=== PATIENT | male | born 1975 | race Caucasian/White ===

== ENCOUNTER 2017-04-01 16:15 | Emergency (ER) | payer OTHER ==
[~2017-04-01] VITALS: Ht 170.2 cm; Wt 83.9 kg
[2017-04-01 16:19] VITALS: BP 138/70
[2017-04-01] MEDS ORDERED: AUGMENTIN 875-1 EACH PO (16:55)
--- NOTE | 2017-04-01 16:55 | ED ANIMAL BITE/WOUND CHECK ---
History of Present Illness General Chief Complaint: Animal/Insect Bite Stated Complaint: DOG BITE Source: patient, old records, police Exam Limitations: intoxication Vital Signs & Intake/Output Vital Signs & Intake/Output Vital Signs Date Time Temp Pulse Resp B/P B/P Pulse O2 O2 Flow FiO2 Mean Ox Delivery Rate 04/01 1619 97.0 124 26 138/70 96 Room Air Allergies Coded Allergies: No Known Allergies (04/01/17) Reconcile Medications Amoxicillin/Potassium Clav (Augmentin 875-125 Tablet) 875 MG-125 MG TABLET 1 TAB PO BID DOG BITE Triage Note: TRIAGE: PT TO ER C/C DOG BITE AND ? STAB WOUNDS TO RLE AND RUE. DOG IS UNKNOWN TO PATIENT. UNSURE OF LAST TETANUS, THINKS HAD IT DONE HERE LAST. PT TRIAGED IN ROOM, DIRECT FROM [facility] DESK. DARIEL WILKES INTO EVALUATE. Triage Nurses Notes Reviewed? yes Onset: Abrupt Duration: hour(s): (1), constant Timing: single episode today Injury Environment: neighbor's Is Injury an Animal Bite? Yes Animal Type: dog Context of Animal Attack: provoked attack Animal Immunization Status: unknown Observation/Capture: animal known/obs x10 days Severity of Attack: bitten Severity: moderate Severity Numbers: 5 No Modifying Factors: none Associated Symptoms: DENIES HPI: 42-year-old male presents to ER for evaluation status post sustaining a dog bite to his right leg and right arm. The patient states to me that he was walking down the street unprovoked when a dog approached him and attacked him. Patient' s last tetanus is unknown he is complaining of [id number] aching pain 5 out of 10 here reports to having a few beers today. The police are at bedside to question the patient. There is no other injury no modifying factors or associated symptoms. (PRISCA LUNA) Past History Travel History Traveled to [place] past 21 day No Medical History Any Pertinent Medical History? none Neurological: NONE EENT: NONE Cardiovascular: NONE Respiratory: NONE Gastrointestinal: NONE Hepatic: NONE Renal: NONE Musculoskeletal: NONE Psychiatric: NONE Endocrine: NONE Blood Disorders: NONE Cancer(s): NONE REGULATORY AND COMPLIANCE TECHNICIAN/Reproductive: NONE Surgical History Surgical History: none Psychosocial History What is your primary language Japanese Tobacco Use: Never used ETOH Use: occasional use Family History Hx Contributory? No (PRISCA LUNA) Review of Systems Review of Systems Constitutional: Reports: see HPI. All Other Systems: Reviewed and Negative Comments Review of systems: See HPI, All other systems negative. Constitutional, no chills no fever, no malaise HEENT: No visual changes no sore throat no congestion Cardiovascular: No chest pain , no palpitation Skin: no rashes, no change in skin Respiratory: No dyspnea no cough no sputum GI: No nausea no vomiting, no diarrhea Muscle skeletal: No joint pain, no back pain, no neck pain, Neurologic: No numbness no headache Psych: No stress Heme/endocrine: No bruising Immunology: No lymphadenopathy (PRISCA LUNA) Physical Exam Physical Exam General Appearance: well developed/nourished, no apparent distress, alert, awake Comments: Well-developed well-nourished patient in no apparent distress. HEENT: Atraumatic, extraocular motion intact Neck: Supple, FROM Back: FROM Cardiovascular: Regular rate and rhythms no murmurs rubs Respiratory: No respiratory distress. Patient speaking in full complete sentences. Breath sounds clear to auscultation bilaterally: NO W/R/R Extremities: There are 2 superficial puncture hill noted to the right dorsal proximal arm as well as a 5 cm laceration superficial linear to the right medial inner thigh and a 2 cm laceration to the anterior right lower card full range of motion Neuro: awake, alert, and oriented to person, place and time. There were no obvious focal neurologic abnormalities. Skin: Warm & dry;No appreciable rash on exposed skin Psych: Mood affect normal, normal memory normal judgment. (PRISCA LUNA) Progress Differential Diagnosis: cellulitis, tenosysnovitis, RABIES LACERATION Plan of Care: Current Medications Sig/Mariam Start time Last Medication Dose Stop Time Status Admin Amoxicillin/ 1,000 MG ONCE ONE 04/01 1700 [facility] Clavulanate Potassium 04/01 1701 (Augmentin) Tetanus/Diphtheria 0.5 ML ONCE ONE 04/01 1700 [facility] Toxoids Adsorbed 04/01 1701 (Decavac) Police are at the bedside, the wounds were thoroughly irrigated with normal saline Betadine peroxide after verbal consent was obtained the 2 lacerations were closed with 18 sutures. The 2 puncture hill to the right arm were closed with Steri-Strips. The patient was given tetanus and Augmentin here. Return precautions were discussed your current 7 days for suture removal. I discussed the patient at least return precautions the possibility of a foreign body tendon injury not seen on examination still exists. He feels comfortable to plan the patient left with police (PRISCA LUNA) Departure Departure Time of Disposition: 1652 Disposition: HOME OR SELF CARE Condition: Stable Clinical Impression Primary Impression: Dog bite Secondary Impressions: Laceration Referrals: PATIENT HAS NO PRIMARY CARE DR (PCP/Family) Additional Instructions: AUGMENTIN DIRECTED FOR PROPHYLAXIS. RETURN TO THE ER IN 7-10 DAYS FOR SUTURE REMOVAL. THE POSSIBLITY OF A FOREIGN BODY OR TENDON INJURY NOT SEEN ON EXAMINTION STILL EXISTS. RETURN WITH ANY CONCERNS OR SIGNS OF INFECTION Departure Forms: Customer Survey General Discharge Information Prescriptions: Current Visit Scripts Amoxicillin/Potassium Clav (Augmentin 875-125 Tablet) 1 TAB PO BID #20 TAB (PRISCA LUNA) PA/PACKER DENTURE Co-Sign Statement Statement: ED Attending supervision documentation- I saw and evaluated the patient. I have also reviewed all the pertinent lab results and diagnostic results. I agree with the findings and the plan of care as documented in the PA's/PACKER DENTURE's documentation. x I have reviewed the ED Record and agree with the PA's/PACKER DENTURE's documentation. [] Additions or exceptions (if any) to the PAs/PACKER DENTURE's note and plan are summarized below: [] (ALY ORDOÑEZ,KYRIE) Procedures Laceration/Wound Repair Laceration/Wound Repair: Wound Location: lower extremity (RIGHT LOWER EXTREM) Wound's Depth, Shape: linear, superficial Wound Length (cm): 7 Wound Explored: clean, no foreign body removed, irrigated extensively Irrigated w/ Saline (ccs): 300 Betadine Prep? Yes Anesthesia: 1% lidocaine Volume Anesthetic (ccs): 10 Wound Repaired With: sutures, Steri-strips Suture Size/Type: 3:0 Number of Sutures: 18 Layer Closure? No Sterile Dressing Applied: Yes Date of Last Tetanus: 04/01/17 Tetanus Status: up to date (PRISCA LUNA)
== END 2017-04-01 17:13 ==
LOC: ERH 16:15
DX: S81.811A Laceration without foreign body, right lower leg, initial encounter (principal); W54.0XXA Bitten by dog, initial encounter; Y93.01 Activity, walking, marching and hiking; Y92.410 Unspecified street and highway as the place of occurrence of the external cause
CPT/HCPCS: 90471; 90714; J3490